=== PATIENT | male | born 1970 | race Caucasian/White ===

== ENCOUNTER 2025-07-25 23:21 | Emergency (ER) | payer BC, SELFPAY ==
[2025-07-25 23:22] VITALS: BP 153/83
--- NOTE | 2025-07-25 23:36 | ED.GENMED ---
History of Present Illness
<Bettina Keith PA-C - Last Filed: 07/26/25 03:49>
General
Chief Complaint: Skin Surface Trauma
Source: patient
Exam Limitations: none
Time Seen by Provider: 07/25/25 23:32
Nursing documentation reviewed up to this point in time: agreed with
History of Present Illness
History of Present Illness:
Note:
CHIEF COMPLAINT(S)
Head injury following a fall.
HISTORY OF PRESENT ILLNESS
The patient is a 54-year-old male with no pmh who sustained a head injury after hitting his head on a countertop at home. The does not recall falling to the ground. The patient is uncertain about the exact mechanism of the fall but did not lose
consciousness. He does admit that there was alcohol involved. He is present with his family. The patient denies experiencing dizziness or nausea and reports no changes in vision or visual disturbances. There are no other significant injuries or pain
complaints, although he does mention feeling a bit of pain in the left rib area, but it is minimal and not exacerbated by deep breathing. The patient has had stitches in the past but not in recent years. The patient is up to date on his tetanus
vaccination. He has no neck pain at this time. No numbness or tingling in his upper extremities. He denies shortness of breath or substernal chest pain.
PAST MEDICAL AND SURGICAL HISTORY
The patient has had a tetanus shot within the last five years.
PHYSICAL EXAM
General: Alert, no acute distress.
Skin: Warm, dry. Stellate laceration on the left forehead
Head: Normocephalic, atraumatic aside from the described laceration.
Neck: Supple, trachea midline.
Eye, Ears, Nose, Mouth and Throat: Oral mucosa moist, no visual disturbances reported.
Cardiovascular: Normal peripheral perfusion, no edema.
Respiratory: Respirations are non-labored,
Gastrointestinal: Abdomen nondistended.
Back: Normal range of motion, normal alignment.
Musculoskeletal: No ecchymosis or tenderness noted over the external chest wall. No palpable crepitus or subcutaneous edema.
Neurological: Alert and oriented to person, place, time, and situation, no focal neurological deficits observed.
Psychiatric: Cooperative, appropriate mood and affect.
PLAN
1. Perform a computed tomography (CT) scan of the head to evaluate for potential intracranial injury or bleeding.
2. Administer sutures to the laceration on the scalp.
3. Monitor patient for any signs of significant rib pain or respiratory issues. No imaging of the ribs indicated at this time patient has no tenderness to palpation and no signs of trauma to the chest wall, no palpable crepitus.
4. Discharge with appropriate wound care instructions and follow-up as necessary.
DIFFERENTIAL DIAGNOSIS
The Differential Diagnosis includes, in no particular order and is not limited to:
1. Concussion
2. Traumatic brain injury
3. Intracranial hemorrhage
4. Skull fracture
5. Rib fracture
6. Contusion
7. Soft tissue injury
8. Subdural hematoma
9. Epidural hematoma
10. Post-traumatic headache
CHART REVIEW
Reviewed ER physician documentation from 03/08/12 patient seen for trigger finger
Reviewed external medical summary, patient had laceration at the thumb noted on November 01, 2023-----tetanus update noted on November 01, 2023
- Patient takes Lexapro, Pepcid
UPDATE
I was notified by nursing staff that patient had increasing left-sided rib pain when he ambulated to the bathroom. Will add on chest x-ray including ribs. Will give patient Tylenol.
1:25 am--Update, patient describes a burning sensation in his chest which he reports attributes to lying down flat for extended period time for the suturing. Patient subsequently had an episode of vomiting and a discomfort starting to feel better.
Will check ECG. Patient admits to having multiple drinks and thinks this is contributing to his symptoms and vomiting. Will trial ODT Zofran and will start IV fluids and start a IV if patient continues to have persistent vomiting. I suspect
the vomiting is a result of patient's drinking. reports he does have periodic episodes of vomiting if he lays flat for an extended period of time and if he does not take his xantac; he is scheduled for endoscopy. ECG shows normal sinus rhythm
with no ischemic changes.
Prior to discharge he is feeling well and chest pain free/heart burn free. No further episodes of vomiting. Patient stable for discharge.
MDM/DISPOSITION
The patient is a 54-year-old male with no pmh who sustained a head injury after hitting his head on a countertop at home. The does not recall falling to the ground. He reports that this happened after a night of heavy drinking. His is present
with him. Who drove him here. On physical exam he is well-appearing in no acute distress. He has a stellate laceration noted to the left forehead near the eyebrow. He is neurologically intact. He has no midline spinal tenderness. He has no
signs of trauma on the chest wall, no palpable crepitus, no ecchymosis. Patient given Tylenol for pain. He went for x-ray which shows no evidence of rib fracture no evidence of pneumothorax or rib fracture. CT scan showed no evidence of acute
intracranial bleeding no evidence of fracture in the neck. Laceration repaired. Patient stable for discharge.
Past History
<eBttina Keith PA-C - Last Filed: 07/26/25 03:49>
Past History
ED Past Medical History: None and Other (has had intermittent swelling of each hand over the years that he has been told has been related to overuse. It always subsided on own.)
Social History
Tobacco: Smoker
Personal:
Living: with family
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
Review of Systems
<Bettina Keith PA-C - Last Filed: 07/26/25 03:49>
Review of Systems
All Other Systems: ROS reviewed and negative except as documented in HPI and ROS
Phy Exam
<Bettina Keith PA-C - Last Filed: 07/26/25 03:49>
Physical Exam
Physical Exam:
see hpi
Course
<Bettina Keith PA-C - Last Filed: 07/26/25 03:49>
Orders/Labs/Results
Orders:
Orders
07/25/25 23:44
CT Cervical Spine W/o Iv Contr Urgent
Comment:
Reason For Exam: transient neck pain, fall
07/25/25 23:45
CT Head W/o Iv Contrast Urgent
Comment:
Reason For Exam: blunt head trauma, headache, facial laceration
07/26/25
Electrocardiogram (*1) Stat
Reason for Study: Chest Pain
07/26/25 00:52
Acetaminophen [Tylenol] 1,000 mg PO NOW STA
CR Ribs-left 3 Vw W/pa Chest Urgent
Comment:
Reason For Exam: left rib pain
07/26/25 01:24
Famotidine [Pepcid] 40 mg PO NOW STA
Ondansetron Orally Disint [Zofran Odt (Orally Disintegrating)] 4 mg PO NOW STA
07/26/25 01:42
Famotidine [Pepcid] 20 mg .ROUTE .STK-MED ONE
Vital Signs
Initial and Last Documented VS:
Initial Vital Signs
Temp Pulse Resp BP Pulse Ox
98.2 F 84 18 153/83 100
07/25/25 23:22 07/25/25 23:22 07/25/25 23:22 07/25/25 23:22 07/25/25 23:22
Last Documented Vital Signs
Temp Pulse Resp BP Pulse Ox
98.2 F 75 18 125/83 96
07/25/25 23:22 07/26/25 01:52 07/26/25 01:52 07/26/25 01:52 07/26/25 01:52
<Bo Muhammad PA-C - Last Filed: 07/26/25 07:32>
Orders/Labs/Results
Orders:
Orders
07/25/25 23:44
CT Cervical Spine W/o Iv Contr Urgent
Comment:
Reason For Exam: transient neck pain, fall
07/25/25 23:45
CT Head W/o Iv Contrast Urgent
Comment:
Reason For Exam: blunt head trauma, headache, facial laceration
07/26/25
Electrocardiogram (*1) Stat
Reason for Study: Chest Pain
07/26/25 00:52
Acetaminophen [Tylenol] 1,000 mg PO NOW STA
CR Ribs-left 3 Vw W/pa Chest Urgent
Comment:
Reason For Exam: left rib pain
07/26/25 01:24
Famotidine [Pepcid] 40 mg PO NOW STA
Ondansetron Orally Disint [Zofran Odt (Orally Disintegrating)] 4 mg PO NOW STA
07/26/25 01:42
Famotidine [Pepcid] 20 mg .ROUTE .STK-MED ONE
Vital Signs
Initial and Last Documented VS:
Initial Vital Signs
Temp Pulse Resp BP Pulse Ox
98.2 F 84 18 153/83 100
07/25/25 23:22 07/25/25 23:22 07/25/25 23:22 07/25/25 23:22 07/25/25 23:22
Last Documented Vital Signs
Temp Pulse Resp BP Pulse Ox
98.2 F 75 18 125/83 96
07/25/25 23:22 07/26/25 01:52 07/26/25 01:52 07/26/25 01:52 07/26/25 01:52
Procedures
<Bettina Keith PA-C - Last Filed: 07/26/25 03:49>
Laceration Closure
Left Forehead:
Status of Wound: clean
Size of Wound in cm: 3.5 (stellate laceration)
Description of Wound Edges: flap-well vascularized
Preparation: cleaned with saline
Anesthesia: 1% Lidocaine with epi
Revision/Debridement: routine- no revision
Wound exploration: explored to base- no FB
Type of Closure: layered closure
Skin Closure Material: 5-0 prolene and 5-0 vicryl
Number of sutures: 8
Additional information:
1 looped deep suture 7 superficial sutures
<Bettina Keith PA-C - Last Filed: 07/26/25 03:49>
*Pulse Oximetry
SaO2: 100
Oxygen Mode of Delivery: Room air
Patient hypoxic: no
*Critical Care Note
Total Time (30-74mins, 75-104mins- exclusive of procedures): Not Applicable
<Bo Muhammad PA-C - Last Filed: 07/26/25 07:32>
Update Note
Update Note:
July 26 at 7:31 AM: Official radiology read demonstrates nondisplaced left seventh rib fracture. Called patient and relayed this information.
ED Attending Note
<Bettina Keith PA-C - Last Filed: 07/26/25 03:49>
-
Portions of this chart may have been created with voice recognition software.� Occasional wrong word or��sound alike� substitutions may have occurred due to the inherent limitations of voice recognition software.
Discharge Plan
Departure
Patient Disposition: Home (Routine Discharge)
Date of Disposition: 07/26/25
Time of Disposition: 02:32
Patient with high blood pressure during this ER visit?: Yes
Condition: Good
Discharge Problem:
Head trauma, Laceration of forehead
Instructions: Wound Care (DC), Laceration Repair With Stitches (DC), BLOOD PRESSURE
Referrals:
Goldfinger,Eros, MD [Family Provider]
Activity Restrictions/Additional Instructions:
Please have stitches removed in 7 days. You can have them removed by the primary care provider, urgent care, or return to the ER. Please keep the wound dry for 24 hours. After 24 hours, you can let warm and mild soapy water run over the wound.
Please not scrub the wound. You apply bacitracin over the wound.
PLEASE RETURN TO THE ER SHOULD YOU DEVELOP PURULENT DRAINAGE FROM THE WOUND, SURROUNDING REDNESS, INCREASING PAIN OR BLEEDING, DIZZINESS, LIGHTHEADEDNESS, INTRACTABLE NAUSEA OR VOMITING, OR ANY OTHER SIGNS OR SYMPTOMS RECENTLY.
Interventions
Interventions:
*Risk Screen - Suicide Last Done: 07/25/25 23:22
*General Assessment Last Done: 07/25/25 23:22
*Neglect/Abuse Screening Last Done: 07/25/25 23:50
*ED- Fall Risk Assessment Last Done: 07/25/25 23:50
*ED COVID-19 Vaccine History Last Done: 07/25/25 23:50
*Nursing Disposition Last Done: 07/26/25 02:41
ED-Skin Assessment Last Done: 07/26/25 02:34
Discharge Date and Time
Discharge Date/Time: 07/26/25 02:41
Print Language: NEPALI
[2025-07-25 23:46] VITALS: BMI 21.0
[2025-07-25 23:47] VITALS: BP 112/80
[2025-07-26 00:57] VITALS: BP 116/82
[2025-07-26] MEDS: ZOFRAN ODT (ORALLY DISINTEGRATING) 4 MG PO (01:41)
[2025-07-26] MEDS: PEPCID 40 MG PO (01:41)
[2025-07-26 01:52] VITALS: BP 125/83
== END 2025-07-26 02:41 | disposition home or self-care (01) ==
LOC: EMR 23:21
PROVIDERS: EMERGENCY PHYSICIAN Student in an Organized Health Care Education/Training Program; FAMILY PHYSICIAN Internal Medicine
DX: S01.81XA Laceration without foreign body of other part of head, initial encounter (principal); S22.32XA Fracture of one rib, left side, initial encounter for closed fracture; W22.09XA Striking against other stationary object, initial encounter; W19.XXXA Unspecified fall, initial encounter; F17.200 Nicotine dependence, unspecified, uncomplicated
CPT/HCPCS: 12052; 99284; 70450; 71101; 72125; 93005